=== PATIENT | male | born 1955 | race Two or more races ===

== ENCOUNTER 2019-04-11 16:23 | Inpatient (IN) | payer MEDICARE, OTHER ==
[~2019-04-11] VITALS: Ht 170.2 cm; Wt 74.5 kg
[2019-04-11] MEDS ORDERED: XANAX2 MG ORAL (16:44)
[2019-04-11] MEDS ORDERED: METHADONE HCL5 MG ORAL (16:44)
[2019-04-11] MEDS ORDERED: ZOLOFT25 MG ORAL (16:44)
[2019-04-11 16:45] VITALS: BP 104/56
--- NOTE | 2019-04-11 16:45 | NUR ---
ED Nurse Note: Pt brought in by EMS from [facility] due to spitting up of blood. Per pt he is having coughing with phlegm. Hx of throat cancer. AAO x4, follows commands, speaks in clear sentences. No respiratory distress.
[2019-04-11] MEDS ORDERED: Isovue-300 100ml vial INJ PRN (17:00)
--- NOTE | 2019-04-11 17:20 | NUR ---
ED Nurse Note: Collected blood specimen then sent.
[2019-04-11 17:34] LABS: INR 1.1 (0.9-1.1)
[2019-04-11 17:39] LABS: ANION GAP 5 mmol/L (5-15); BLOOD UREA NITROGEN 11 mg/dL (7-18); CALCIUM 8.7 MG/DL (8.5-10.1); CARBON DIOXIDE 30 MMOL/L (21-32); CHLORIDE 105 MMOL/L (98-107); CREATININE 0.7 MG/DL (0.55-1.30); POTASSIUM 3.9 MMOL/L (3.5-5.1); SODIUM 140 MMOL/L (136-145)
[2019-04-11 17:41] LABS: HEMATOCRIT 40.1 % (42.0-52.0); HEMOGLOBIN 14.2 G/DL (14.2-18.0); MEAN CORPUSCULAR VOLUME 90 FL (80-99); PLATELET COUNT 50 K/UL (150-450); RED BLOOD COUNT 4.46 M/UL (4.70-6.10); RED CELL DISTRIBUTION WIDTH 11.5 % (11.6-14.8); WHITE BLOOD COUNT 2.4 K/UL (4.8-10.8)
[2019-04-11 17:46] LABS: ALANINE AMINOTRANSFERASE 21 U/L (12-78); ALBUMIN 3.5 G/DL (3.4-5.0); ALBUMIN/GLOBULIN RATIO 1.1 (1.0-2.7); ALKALINE PHOSPHATASE 75 U/L (46-116); ASPARTATE AMINO TRANSFERASE 28 U/L (15-37); BILIRUBIN,TOTAL 0.4 MG/DL (0.2-1.0)
[2019-04-11] MEDS ORDERED: Morphine Sulfate 4mg/ml Inj (IV USE ONLY) IVP ONE (18:15)
--- NOTE | 2019-04-11 18:27 | Consultation ---
History of Present Illness General Date patient seen: Apr 11, 2019 Time patient seen: 18:18 Chief Complaint: Coughing blood Present Illness HPI Patient is here with a history of hemoptysis. he recently was seen by Cary Singh MD at [facility] and diagnosed with a left lateral pharyngeal mass. he had a CT neck and esophogram. he has been having dysphagia. He is a smoker and has cut down to two cigs/day. He denies dyspnea or dysphonia but has severe pain with swallowing and throat pain. He states he initialyl coughs up a lot of mucous in the AM and then there is specs of blood in it. Denies gil blood. No dysphonia. No stridor symptoms. Allergies: Coded Allergies: LEVOFLOXACIN (Verified Allergy, Unknown, 04/11/19) Uncoded Allergies: PENICILLIN (Allergy, Unknown, 04/11/19) Medication History Scheduled Alprazolam* (Xanax*), 2 MG ORAL TWICE A DAY, (Reported) Methadone Hcl* (Methadone*), 5 MG ORAL DAILY, (Reported) Sertraline Hcl* (Zoloft*), 25 MG ORAL DAILY, (Reported) Patient History History Provided By: Patient Healthcare decision maker Resuscitation status Advanced Directive on File Past Medical/Surgical History Past Medical/Surgical History: (1) Tobacco abuse (2) Bradycardia Social History Social History: (1) Throat cancer (2) Tobacco abuse (3) Hemoptysis Review of Systems Constitutional: Denies: no symptoms, see HPI, chills, sweats, fever, malaise, weakness, other Eye: Denies: no symptoms, see HPI, eye pain, blurred vision, tearing, double vision, nose pain, nose congestion, acuity changes, discharge, other ENT: Reports: throat pain Respiratory: Denies: no symptoms, see HPI, cough, orthopnea, shortness of breath, stridor, wheezing, THRASHER, sputum, other Cardiovascular: Denies: no symptoms, see HPI, chest pain, edema, palpitations, syncope, PND, other Gastrointestinal: Denies: no symptoms, see HPI, abdominal pain, constipation, diarrhea, nausea, vomiting, melena, hematemesis, other Genitourinary: Denies: no symptoms, see HPI, discharge, dysuria, frequency, hematuria, pain, retention, incontinence, urgency, vag bleed/dc, other Musculoskeletal: Denies: no symptoms, see HPI, back pain, gout, joint pain, joint swelling, muscle pain, muscle stiffness, other Skin: Denies: no symptoms, see HPI, rash, change in color, change in hair/nails , dryness, lesions, other Psychiatric: Denies: no symptoms, see HPI, prior hx, anxiety, depressed feelings, emotional problems, SI, HI, hallucinations, other Neurological: Denies: no symptoms, see HPI, headache, numbness, paresthesia, seizure, tingling, tremors, focal weakness, syncope, dizziness, other Endocrine: Denies: no symptoms, see HPI, excessive sweating, flushing, intolerance to temperature, increased thirst, increased urine, unexplained weight loss, other Hematologic/Lymphatic: Denies: no symptoms, see HPI, anemia, blood clots, easy bleeding, easy bruising, swollen glands, diathesis, other All Other Systems: negative except mentioned in HPI Physical Exam HEENT: normocephalic, atraumatic, mucous membranes moist, PERRL, EOMI, pharynx normal, supple, other - oral cavity dry, MMM, no masses or lesions Neck: non-tender, supple, normal inspection Physical Exam Narrative - Indication-D37.05 CPT 40712 Procedure- Scope was passed through the nares and down to the level of the pharynx. The nasal cavity and nasopharnyx was evaluated. No masses or lesions seen. The orpharynx and oral cavity was clear. On the left lateral pharyngeal was an exophytic cylindrical smooth mass was seen. It is overhaving and contacting the arytenoid. There was no e/o bleeding. There was no airway obstruction. Both vocal cords were mobile. Last 24 Hour Vital Signs Date Time Temp Pulse Resp B/P (MAP) Pulse Ox O2 Delivery O2 Flow Rate FiO2 04/11/19 16:50 50 17 Room Air 04/11/19 16:45 98.1 50 16 104/56 97 Room Air 04/11/19 16:33 98.1 50 15 98/56 (70) 91 Room Air 2.0 Laboratory Tests Test 04/11/19 17:00 White Blood Count 2.4 K/UL (4.8-10.8) L Red Blood Count 4.46 M/UL (4.70-6.10) L Hemoglobin 14.2 G/DL (14.2-18.0) Hematocrit 40.1 % (42.0-52.0) L Mean Corpuscular Volume 90 FL (80-99) Mean Corpuscular Hemoglobin 31.8 PG (27.0-31.0) H Mean Corpuscular Hemoglobin Concent 35.4 G/DL (32.0-36.0) Red Cell Distribution Width 11.5 % (11.6-14.8) L Platelet Count 50 K/UL (150-450) L Mean Platelet Volume 10.0 FL (6.5-10.1) Neutrophils (%) (Auto) % (45.0-75.0) Lymphocytes (%) (Auto) % (20.0-45.0) Monocytes (%) (Auto) % (1.0-10.0) Eosinophils (%) (Auto) % (0.0-3.0) Basophils (%) (Auto) % (0.0-2.0) Neutrophils % (Manual) Pending Lymphocytes % (Manual) Pending Platelet Estimate Pending Platelet Morphology Pending Prothrombin Time 11.6 SEC (9.30-11.50) H Prothromb Time International Ratio 1.1 (0.9-1.1) Activated Partial Thromboplast Time 33 SEC (23-33) Sodium Level 140 MMOL/L (136-145) Potassium Level 3.9 MMOL/L (3.5-5.1) Chloride Level 105 MMOL/L (98-107) Carbon Dioxide Level 30 MMOL/L (21-32) Anion Gap 5 mmol/L (5-15) Blood Urea Nitrogen 11 mg/dL (7-18) Creatinine 0.7 MG/DL (0.55-1.30) Estimat Glomerular Filtration Rate > 60 mL/min (>60) Glucose Level 101 MG/DL (74-106) Calcium Level 8.7 MG/DL (8.5-10.1) Total Bilirubin 0.4 MG/DL (0.2-1.0) Aspartate Amino Transf (AST/SGOT) 28 U/L (15-37) Alanine Aminotransferase (ALT/SGPT) 21 U/L (12-78) Alkaline Phosphatase 75 U/L (46-116) Total Protein 6.8 G/DL (6.4-8.2) Albumin 3.5 G/DL (3.4-5.0) Globulin 3.3 g/dL Albumin/Globulin Ratio 1.1 (1.0-2.7) Height (Feet): 5 Height (Inches): 7.00 Weight (Pounds): 165 Medications Current Medications Medications (Trade) Dose Ordered Sig/Osvaldo Route PRN Reason Start Time Stop Time Status Last Admin Dose Admin Iopamidol (Isovue-300 100ml) 100 ml NOW PRN INJ Radiology Procedure 04/11/19 17:00 04/13/19 16:51 Sodium Chloride 1,000 ml @ 200 mls/hr Q5H IV 04/11/19 18:00 05/11/19 17:59 04/11/19 18:15 Assessment/Plan Problem List: (1) Throat cancer ICD Codes: 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 This does not appear to be a difinitive cancer which explains why the outside ENT order workup neck imaging and esophogram. I would advise that she be contacted and asked to review the imaging as repeating a full workup wouldn't make sense with the addition that other than a biopsy I would refer to her for further management anyways. [facility] admission for hemopytis and bradycardia workup. Can follow up outpatient for ENT complaints. [facility] lortab elixir for pain control. Isa Pappas MD Apr 11, 2019 18:27
--- NOTE | 2019-04-11 18:28 | Emergency Room Report ---
History of Present Illness General Chief Complaint: Upper Respiratory Illness Source: Patient Present Illness HPI 64-year-old male presents ED for evaluation. Brought in by EMS from assisted living facility. Reportedly having hemoptysis x1 week. Patient states that he has been recently diagnosed with throat cancer by another ENT. Denies chest pain or shortness of breath. Denies fevers or chills. States he is able to swallow without difficulty. No other aggravating relieving factors. Denies any other associated symptoms Allergies: Coded Allergies: LEVOFLOXACIN (Verified Allergy, Unknown, 04/11/19) Uncoded Allergies: PENICILLIN (Allergy, Unknown, 04/11/19) Patient History Past Medical History: HTN, COPD, psych hx, other - throat ca Past Surgical History: none Pertinent Family History: none Social History: Denies: smoking, alcohol use, drug use Immunizations: UTD Reviewed Nursing Documentation: PMH: Agreed; PSxH: Agreed Nursing Documentation-PMH Hx Hypertension: Yes Hx COPD: Yes Hx Cancer: Yes - THROAT CA History Of Psychiatric Problem: Yes - DEPRESSION Review of Systems All Other Systems: negative except mentioned in HPI Physical Exam Vital Signs Date Time Temp Pulse Resp B/P (MAP) Pulse Ox O2 Delivery O2 Flow Rate FiO2 04/11/19 16:33 98.1 50 15 98/56 (70) 91 Room Air 2.0 Sp02 EP Interpretation: reviewed, normal General Appearance: no apparent distress, alert, GCS 15, non-toxic Head: normocephalic, atraumatic Eyes: bilateral eye normal inspection, bilateral eye PERRL ENT: hearing grossly normal, normal pharynx, no angioedema, normal voice Neck: full range of motion, supple/symm/no masses Respiratory: chest non-tender, lungs clear, normal breath sounds, speaking full sentences Cardiovascular #1: regular rate, rhythm, no edema Cardiovascular #2: 2+ carotid (R), 2+ carotid (L), 2+ radial (R), 2+ radial (L) , 2+ dorsalis pedis (R), 2+ dorsalis pedis (L) Gastrointestinal: normal bowel sounds, non tender, soft, non-distended, no guarding, no rebound Rectal: deferred Genitourinary: normal inspection, no CVA tenderness Musculoskeletal: back normal, gait/station normal, normal range of motion, non- tender Neurologic: alert, oriented x3, responsive, motor strength/tone normal, sensory intact, speech normal Psychiatric: judgement/insight normal, memory normal, mood/affect normal, no suicidal/homicidal ideation Reflexes: 3+ bicep (R), 3+ bicep (L), 3+ tricep (R), 3+ tricep (L), 3+ knee (R) , 3+ knee (L) Lymphatic: no adenopathy Medical Decision Making Diagnostic Impression: Primary Impression: Hemoptysis Additional Impressions: Throat cancer Bradycardia ER Course Hospital Course 64 yo M presents to ED with hemoptysis. h/o throat cancer. Differential diagnoses include: URI, bronchitis, asthma/COPD, pneumonia Clinical course Patient placed on stretcher. After initial history, physical exam reveals an elderly male in no acute distress. Bilateral TM unremarkable. No pharyngeal erythema. No tonsillar exudates. No lymphadenopathy. lungs clear. I ordered labs, IV fluids, EKG, chest x-ray. Labs reviewed-leukocytosis noted, hemoglobin/hematocrit stable, electrolytes okay EKG - sinus bradycardia no acute ischemic changes interpreted by me Chest x-ray shows no focal consolidation Patient was to receive CT neck and CT chest but declined stating that he had had this work-up done recently in outpatient setting. Inpatient team will obtain records for this imaging. Dr. Pappas (ENT) at bedside to evaluate patient. patient mentating appropriately, not hypotensive with bradycardia to the 50s. Not requiring atropine or pacer at this time patient will be admitted to Dr Dodge Diagnosis - hemoptysis, throat cancer, bradycardia admitted to telemetry in serious condition Labs Test 04/11/19 17:00 04/11/19 18:20 White Blood Count 2.4 K/UL (4.8-10.8) Red Blood Count 4.46 M/UL (4.70-6.10) Hemoglobin 14.2 G/DL (14.2-18.0) Hematocrit 40.1 % (42.0-52.0) Mean Corpuscular Volume 90 FL (80-99) Mean Corpuscular Hemoglobin 31.8 PG (27.0-31.0) Mean Corpuscular Hemoglobin Concent 35.4 G/DL (32.0-36.0) Red Cell Distribution Width 11.5 % (11.6-14.8) Platelet Count 50 K/UL (150-450) Mean Platelet Volume 10.0 FL (6.5-10.1) Neutrophils (%) (Auto) % (45.0-75.0) Lymphocytes (%) (Auto) % (20.0-45.0) Monocytes (%) (Auto) % (1.0-10.0) Eosinophils (%) (Auto) % (0.0-3.0) Basophils (%) (Auto) % (0.0-2.0) Prothrombin Time 11.6 SEC (9.30-11.50) Prothromb Time International Ratio 1.1 (0.9-1.1) Activated Partial Thromboplast Time 33 SEC (23-33) Sodium Level 140 MMOL/L (136-145) Potassium Level 3.9 MMOL/L (3.5-5.1) Chloride Level 105 MMOL/L (98-107) Carbon Dioxide Level 30 MMOL/L (21-32) Anion Gap 5 mmol/L (5-15) Blood Urea Nitrogen 11 mg/dL (7-18) Creatinine 0.7 MG/DL (0.55-1.30) Estimat Glomerular Filtration Rate > 60 mL/min (>60) Glucose Level 101 MG/DL (74-106) Calcium Level 8.7 MG/DL (8.5-10.1) Total Bilirubin 0.4 MG/DL (0.2-1.0) Aspartate Amino Transf (AST/SGOT) 28 U/L (15-37) Alanine Aminotransferase (ALT/SGPT) 21 U/L (12-78) Alkaline Phosphatase 75 U/L (46-116) Total Protein 6.8 G/DL (6.4-8.2) Albumin 3.5 G/DL (3.4-5.0) Globulin 3.3 g/dL Albumin/Globulin Ratio 1.1 (1.0-2.7) EKG Diagnostic Results Rate: bradycardiac Rhythm: NSR ST Segments: no acute changes ASA given to the pt in ED: No Rhythm Strip Diag. Results EP Interpretation: yes Rhythm: NSR, no PVC's, no ectopy Chest X-Ray Diagnostic Results Chest X-Ray Diagnostic Results : Chest X-Ray Ordered: Yes # of Views/Limited/Complete: 1 View Indication: Other EP Interpretation: Yes Interpretation: no consolidation, no effusion, no pneumothorax, no acute cardiopulmonary disease Impression: No acute disease Electronically Signed by: Electronically signed by Rg Ash MD Last Vital Signs Date Time Temp Pulse Resp B/P (MAP) Pulse Ox O2 Delivery O2 Flow Rate FiO2 04/11/19 16:50 50 17 Room Air 04/11/19 16:45 98.1 104/56 97 04/11/19 16:33 2.0 Status: improved Disposition: ADMITTED INPATIENT Condition: Serious Referrals: Ivan Dodge MD (PCP) Rg Ash MD Apr 11, 2019 18:28
[2019-04-11 18:31] LABS: APPEARANCE,URINE CLEAR; BILIRUBIN, URINE NEGATIVE (NEGATIVE); COLOR,URINE PALE YELLOW; GLUCOSE, URINE (UA) NEGATIVE (NEGATIVE); KETONES,URINE NEGATIVE (NEGATIVE); LEUKOCYTE ESTERASE ,URINE NEGATIVE (NEGATIVE); NITRITE,URINE NEGATIVE (NEGATIVE); PH,URINE 7 (4.5-8.0); PROTEIN,URINE NEGATIVE (NEGATIVE); UROBILINOGEN,URINE NORMAL MG/DL (0.0-1.0)
--- NOTE | 2019-04-11 18:37 | NUR ---
ED Nurse Note: Dr Pappas at the bed side.
[2019-04-11] MEDS ORDERED: Oxymetazoline 0.05% Na Spray 30ml NASAL ONE (18:45)
--- NOTE | 2019-04-11 18:45 | NUR ---
ED Nurse Note: Dr Sergio Pappas at the bed side for laryngoscopy. Dr Pappas stated that no consent needed to sign by patient.
--- NOTE | 2019-04-11 19:12 | NUR ---
ED Nurse Note: Pt's medication surrendered to pharmacy. Witnessed with Meng Katz RN.
--- NOTE | 2019-04-11 19:14 | NUR ---
HAND-OFF: Report given to Meng RANGEL.
--- NOTE | 2019-04-11 19:30 | NUR ---
ED Nurse Note: Patient stated that he wanted to keep his belongings with him and denied the use of hospital safe
--- NOTE | 2019-04-11 19:30 | NUR ---
Priyanka wiseman in EDM - 04/11/19 at 2017 by TAMY ED Nurse Note: Patient stated that he wanted to keep his belongings and denies a
--- NOTE | 2019-04-11 19:51 | Pulmonology Progress Note ---
Assessment/Plan Assessment/Plan Pulmonary Consultation: HPI 64-year-old male admitted c/o hemoptysis x1 week. Patient states that he has been recently diagnosed with throat cancer by another ENT. Denies chest pain or shortness of breath. Denies fevers or chills. States he is able to swallow without difficulty. No other aggravating relieving factors. Denies any other associated symptoms. Seen by ENT noted to have left mass above the vocal cords Allergies: Coded Allergies: LEVOFLOXACIN PENICILLIN Past Medical History: HTN, COPD, psych hx, throat ca Social History: Denies: current smoking, alcohol use, drug use I All Other Systems: negative except mentioned in HPI Physical Exam Vital Signs Noted Date Time Temp Pulse Resp B/P (MAP) Pulse Ox O2 Delivery O2 Flow Rate FiO2 04/11/19 16:33 98.1 50 15 98/56 (70) 91 Room Air 2.0 General Appearance: no apparent distress, alert, GCS 15, non-toxic Head: normocephalic, atraumatic Eyes: bilateral eye normal inspection, bilateral eye PERRL ENT: hearing grossly normal, normal pharynx, no angioedema, normal voice Neck: full range of motion, supple/symm/no masses, no lN Respiratory: chest non-tender, lungs clear, normal breath sounds, speaking full sentences Cardiovascular: regular rate, rhythm, normal HS1, HS2, no edema Gastrointestinal: normal bowel sounds, non tender, soft, non-distended, no guarding, no rebound Rectal: deferred Genitourinary: normal inspection, no CVA tenderness Musculoskeletal: back normal, gait/station normal, normal range of motion, non- tender Neurologic: alert, oriented x3, responsive, motor strength/tone normal Impression: Hemoptysis COPD Clear CXR Thrombocytopenia Throat cancer Hypertension Bradycardia Depression Plan - O2 PRN - ENT following - CT Chest - CTA - LE dupplex - PRN 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 Labs Test 04/11/19 17:00 04/11/19 18:20 White Blood Count 2.4 K/UL (4.8-10.8) Red Blood Count 4.46 M/UL (4.70-6.10) Hemoglobin 14.2 G/DL (14.2-18.0) Hematocrit 40.1 % (42.0-52.0) Mean Corpuscular Volume 90 FL (80-99) Mean Corpuscular Hemoglobin 31.8 PG (27.0-31.0) Mean Corpuscular Hemoglobin Concent 35.4 G/DL (32.0-36.0) Red Cell Distribution Width 11.5 % (11.6-14.8) Platelet Count 50 K/UL (150-450) Mean Platelet Volume 10.0 FL (6.5-10.1) Neutrophils (%) (Auto) % (45.0-75.0) Lymphocytes (%) (Auto) % (20.0-45.0) Monocytes (%) (Auto) % (1.0-10.0) Eosinophils (%) (Auto) % (0.0-3.0) Basophils (%) (Auto) % (0.0-2.0) Prothrombin Time 11.6 SEC (9.30-11.50) Prothromb Time International Ratio 1.1 (0.9-1.1) Activated Partial Thromboplast Time 33 SEC (23-33) Sodium Level 140 MMOL/L (136-145) Potassium Level 3.9 MMOL/L (3.5-5.1) Chloride Level 105 MMOL/L (98-107) Carbon Dioxide Level 30 MMOL/L (21-32) Anion Gap 5 mmol/L (5-15) Blood Urea Nitrogen 11 mg/dL (7-18) Creatinine 0.7 MG/DL (0.55-1.30) Estimat Glomerular Filtration Rate > 60 mL/min (>60) Glucose Level 101 MG/DL (74-106) Calcium Level 8.7 MG/DL (8.5-10.1) Total Bilirubin 0.4 MG/DL (0.2-1.0) Aspartate Amino Transf (AST/SGOT) 28 U/L (15-37) Alanine Aminotransferase (ALT/SGPT) 21 U/L (12-78) Alkaline Phosphatase 75 U/L (46-116) Total Protein 6.8 G/DL (6.4-8.2) Albumin 3.5 G/DL (3.4-5.0) Globulin 3.3 g/dL Albumin/Globulin Ratio 1.1 (1.0-2.7) EKG: Rate: bradycardiac Rhythm: NSR ST Segments: no acute changes Chest X-Ray: No acute disease Subjective ROS Limited/Unobtainable: No Respiratory: Reports: hemoptysis Allergies: Coded Allergies: LEVOFLOXACIN (Verified Allergy, Unknown, 04/11/19) Uncoded Allergies: PENICILLIN (Allergy, Unknown, 04/11/19) Objective Last 24 Hour Vital Signs Date Time Temp Pulse Resp B/P (MAP) Pulse Ox O2 Delivery O2 Flow Rate FiO2 04/11/19 18:45 98.1 04/11/19 16:50 50 17 Room Air 04/11/19 16:45 98.1 50 16 104/56 97 Room Air 04/11/19 16:33 98.1 50 15 98/56 (70) 91 Room Air 2.0 Laboratory Tests 04/11/19 17:00: White Blood Count 2.4L, Red Blood Count 4.46L, Hemoglobin 14.2, Hematocrit 40.1L , Mean Corpuscular Volume 90, Mean Corpuscular Hemoglobin 31.8H, Mean Corpuscular Hemoglobin Concent 35.4, Red Cell Distribution Width 11.5L, Platelet Count 50L, Mean Platelet Volume 10.0, Neutrophils (%) (Auto) , Lymphocytes (%) (Auto) , Monocytes (%) (Auto) , Eosinophils (%) (Auto) , Basophils (%) (Auto) , Differential Total Cells Counted 100, Neutrophils % ( Manual) 30L, Lymphocytes % (Manual) 53H, Monocytes % (Manual) 7, Eosinophils % ( Manual) 9H, Basophils % (Manual) 0, Band Neutrophils 1, Platelet Estimate DecreasedL, Platelet Morphology Normal, Red Blood Cell Morphology Normal, Prothrombin Time 11.6H, Prothromb Time International Ratio 1.1, Activated Partial Thromboplast Time 33, Sodium Level 140, Potassium Level 3.9, Chloride Level 105, Carbon Dioxide Level 30, Anion Gap 5, Blood Urea Nitrogen 11, Creatinine 0.7, Estimat Glomerular Filtration Rate > 60, Glucose Level 101, Calcium Level 8.7, Total Bilirubin 0.4, Aspartate Amino Transf (AST/SGOT) 28, Alanine Aminotransferase (ALT/SGPT) 21, Alkaline Phosphatase 75, Total Protein 6.8, Albumin 3.5, Globulin 3.3, Albumin/Globulin Ratio 1.1 04/11/19 18:20: Urine Color Pale yellow, Urine Appearance Clear, Urine pH 7, Urine Specific [place] 1.010, Urine Protein Negative, Urine Glucose (UA) Negative, Urine Ketones Negative, Urine Blood Negative, Urine Nitrite Negative, Urine Bilirubin Negative, Urine Urobilinogen Normal, Urine Leukocyte Esterase Negative Current Medications Medications (Trade) Dose Ordered Sig/Osvaldo Route PRN Reason Start Time Stop Time Status Last Admin Dose Admin Iopamidol (Isovue-300 100ml) 100 ml NOW PRN INJ Radiology Procedure 04/11/19 17:00 04/13/19 16:51 Sodium Chloride 1,000 ml @ 200 mls/hr Q5H IV 04/11/19 18:00 05/11/19 17:59 04/11/19 18:15 Hussain Edwards MD Apr 11, 2019 19:51
--- NOTE | 2019-04-11 20:00 | NUR ---
TRANSFER TO FLOOR: Patient transferred to Telemetry as ordered, per . Report given to JUAN CARLOS Bettencourt
--- NOTE | 2019-04-11 20:10 | NUR ---
NURSE NOTES: Pt received from Meng RANGEL alert and oriented x4, but hard of hearing bilaterally. No s/s of distress noted. IV site asymptomatic and patent on R ac 20g, saline lock. No wounds noted upon admission. Belongings all with patient upon admission - including watch and $240 in hemphill which the pt refused to place in safe. RN educated pt on risks of leaving money at bedside but pt verbalized understanding and stated that he wanted to keep it with him at bedside for safe-keeping. Pt able to ambulate steadily, has assistive device (cane) at bedside. Pt provided [facility] of Methadone [facility] in [address] [place] [address] ([phone]). Addendum: 04/12/19 at 0055 by Sg Villalpando RN [employer] dropped off pt's home medications in [facility] pharmacy. Pharmacy tag placed in chart and in EMR (#[id number])
--- NOTE | 2019-04-11 20:29 | NUR ---
NURSE NOTES: Left message for Dr. Dodge for admission orders. Currently awaiting call back.
[2019-04-11 20:33] VITALS: BP 125/71
--- NOTE | 2019-04-11 20:40 | NUR ---
NURSE NOTES: Endorsed pt's home meds to Dr. Dodge: Xanax 2 mg PO BID, MEthadone 5 mg PO daily, Zoloft 25 mg PO daily, Trazodone [address] Dodge, pls continue the medications. - Full code - CBC and CMP in AM - SCD for DVT - Reg diet
[2019-04-11] MEDS ORDERED: TRAZODONE HCL50 MG ORAL (20:51)
[2019-04-11] MEDS ORDERED: TraZODone 50mg tab ORAL SCH (21:00)
--- NOTE | 2019-04-11 21:06 | NUR ---
NURSE NOTES: Endorsed to Starr from pharmacy about pt's methadone clinic information. RN will obtain HIPAA form for pt to sign and will fax to pharmacy for pharmacy to follow up in AM.
--- NOTE | 2019-04-11 21:30 | NUR ---
NURSE NOTES: Left message with Penny Canales [facility] to obtain patient's files and information ([phone]). Will endorse to AM nurse to follow up.
--- NOTE | 2019-04-11 22:41 | NUR ---
NURSE NOTES: Per Dr. Edwards: - Venous Duplex in AM to r/o DVT and then when negative - place pt on SCDs - CT Angio of chest to r/o Pulmonary Embolism - PRN albuterol 2.5 mg q4h for SOB - Maintain O2 sat at 90-96% - Zofran 4 mg q8h PRN for n/v - Tylenol 650 mg q6h PRN for mild pain and temp over 100.5 - daily CBC, daily BMP - INR in AM
[2019-04-11] MEDS ORDERED: Isovue-370 150ml vial INJ PRN (22:45)
[2019-04-11] MEDS ORDERED: Albuterol ud Inhalation HHN PRN (22:45)
[2019-04-12] VITALS: BP 120/65
--- NOTE | 2019-04-12 03:10 | NUR ---
NURSE NOTES: HIPAA form signed by patient for Methadone confirmation with clinic. Faxed to [facility] pharmacy.
[2019-04-12 04:00] VITALS: BP 94/48
[2019-04-12 07:28] LABS: HEMATOCRIT 41.6 % (42.0-52.0); HEMOGLOBIN 14.5 G/DL (14.2-18.0); MEAN CORPUSCULAR VOLUME 93 FL (80-99); PLATELET COUNT 47 K/UL (150-450); RED CELL DISTRIBUTION WIDTH 11.8 % (11.6-14.8)
[2019-04-12 07:30] LABS: WHITE BLOOD COUNT 2.1 K/UL (4.8-10.8)
--- NOTE | 2019-04-12 07:30 | NUR ---
NURSE NOTES: Pt initially refused Ct angio of chest stating "I already had it done at another place two weeks ago. I don't see the need of having it done again." RN endorsed to Dr. Edwards and educated pt of the necessity of the test "to assess if there are any changes from prior exam as well as to assess current pulmonary condition." Pt agreed to have CT of chest after discussion. Per Dr. Edwards, pls collect the results from the other place so we can compare. Pt provided contact number and facility "[facility]" ([phone]). HIPAA form filled out and signed by patient. RN tried to call twice to [facility] but was unable to obtain response, RN endorsed to AM nurse to follow up. Addendum: 04/12/19 at 0750 by Sg Villalpando RN HIPAA form placed in chart.
[2019-04-12 07:39] LABS: ALANINE AMINOTRANSFERASE 24 U/L (12-78); ALBUMIN 3.2 G/DL (3.4-5.0); ALBUMIN/GLOBULIN RATIO 1.1 (1.0-2.7); ALKALINE PHOSPHATASE 69 U/L (46-116); ANION GAP 5 mmol/L (5-15); ASPARTATE AMINO TRANSFERASE 27 U/L (15-37); BILIRUBIN,TOTAL 0.5 MG/DL (0.2-1.0); BLOOD UREA NITROGEN 9 mg/dL (7-18); CALCIUM 8.4 MG/DL (8.5-10.1); CARBON DIOXIDE 29 MMOL/L (21-32); CHLORIDE 107 MMOL/L (98-107); CREATININE 0.6 MG/DL (0.55-1.30); POTASSIUM 3.6 MMOL/L (3.5-5.1); SODIUM 141 MMOL/L (136-145)
--- NOTE | 2019-04-12 07:45 | NUR ---
HAND-OFF: Report given to JUAN CARLOS Hernández. No acute s/s of distress noted.
--- NOTE | 2019-04-12 07:45 | NUR ---
NURSE NOTES: Received report from Sg RANGEL. AOX4 and able to make needs known. Pt sitting in bed and awake. IV site in RAA 20G SL asymptomatic and patent. Bed in its lowest position an locked. Bed side rails upx2 for safety. Call light within easy reach. On room air and no signs of distress or SOB noted. Will continue to plan of care.
[2019-04-12 07:47] LABS: INR 1.1 (0.9-1.1)
[2019-04-12 08:00] VITALS: BP 92/47
--- NOTE | 2019-04-12 08:45 | NUR ---
NURSE NOTES: The pt transferred to radiology dept for CT scan via bed with transporter
--- NOTE | 2019-04-12 08:58 | NUR ---
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
[2019-04-12] MEDS ORDERED: Sertraline 50mg tab ORAL SCH (09:00)
[2019-04-12] MEDS ORDERED: ALPRAZolam 0.5mg tab ORAL SCH (09:00)
--- NOTE | 2019-04-12 09:11 | Consultation ---
History of Present Illness General Date patient seen: Apr 12, 2019 Time patient seen: 09:07 Chief Complaint: Upper Respiratory Illness Present Illness HPI Pt brought in by EMS from [facility] due to spitting up of blood. Per pt he is having coughing with phlegm. Hx of throat cancer. Cardiology consulted for bradycardia, no syncope, no chest pain, no hx of UT, smoking history Allergies: Coded Allergies: LEVOFLOXACIN (Verified Allergy, Unknown, 04/11/19) Uncoded Allergies: PENICILLIN (Allergy, Unknown, 04/11/19) Medication History Scheduled Alprazolam* (Xanax*), 2 MG ORAL TWICE A DAY, (Reported) Methadone Hcl* (Methadone*), 5 MG ORAL DAILY, (Reported) Sertraline Hcl* (Zoloft*), 25 MG ORAL DAILY, (Reported) Trazodone Hcl* (Desyrel*), 50 MG ORAL BEDTIME, (Reported) Patient History Healthcare decision maker Resuscitation status Full Code Advanced Directive on File Review of Systems Constitutional: Reports: no symptoms Eye: Reports: no symptoms ENT: Reports: no symptoms Respiratory: Reports: no symptoms Cardiovascular: Reports: no symptoms Gastrointestinal: Reports: nausea, vomiting Genitourinary: Reports: no symptoms Musculoskeletal: Reports: no symptoms Skin: Reports: no symptoms Psychiatric: Reports: no symptoms Neurological: Reports: no symptoms Endocrine: Reports: no symptoms Hematologic/Lymphatic: Reports: no symptoms Physical Exam General Appearance: no apparent distress, lethargic Lines, tubes and drains: peripheral HEENT: normocephalic, atraumatic, anicteric, mucous membranes moist, PERRL Neck: non-tender, normal alignment, supple, normal inspection Respiratory/Chest: chest wall non-tender, lungs clear, normal breath sounds, no respiratory distress Cardiovascular/Chest: normal peripheral pulses, normal rate Abdomen: normal bowel sounds, non tender, soft, no organomegaly, no mass Extremities: normal range of motion, non-tender, normal inspection, no calf tenderness, normal capillary refill, non-pitting Skin Exam: normal pigmentation, warm/dry, cyanotic 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 II-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 grossly normal, no motor/sensory deficits Last 24 Hour Vital Signs Date Time Temp Pulse Resp B/P (MAP) Pulse Ox O2 Delivery O2 Flow Rate FiO2 04/12/19 08:00 98.5 46 20 92/47 (62) 96 8/15/19 04:00 97.4 43 20 94/48 (63) 94 04/12/19 04:00 43 04/12/19 00:00 98.1 50 20 120/65 (83) 96 04/12/19 00:00 35 04/11/19 20:33 97.9 65 20 125/71 (89) 94 04/11/19 20:33 Room Air 04/11/19 20:28 45 04/11/19 20:00 98.1 53 17 126/65 99 Room Air 04/11/19 18:45 98.1 04/11/19 16:50 50 17 Room Air 04/11/19 16:45 98.1 50 16 104/56 97 Room Air 04/11/19 16:33 98.1 50 15 98/56 (70) 91 Room Air 2.0 Intake and Output 04/11/19 04/12/19 19:00 07:00 # Voids 1 Laboratory Tests Test 04/11/19 17:00 04/11/19 18:20 04/12/19 05:15 White Blood Count 2.4 K/UL (4.8-10.8) L 2.1 K/UL (4.8-10.8) *L Red Blood Count 4.46 M/UL (4.70-6.10) L 4.50 M/UL (4.70-6.10) L Hemoglobin 14.2 G/DL (14.2-18.0) 14.5 G/DL (14.2-18.0) Hematocrit 40.1 % (42.0-52.0) L 41.6 % (42.0-52.0) L Mean Corpuscular Volume 90 FL (80-99) 93 FL (80-99) Mean Corpuscular Hemoglobin 31.8 PG (27.0-31.0) H 32.3 PG (27.0-31.0) H Mean Corpuscular Hemoglobin Concent 35.4 G/DL (32.0-36.0) 34.9 G/DL (32.0-36.0) Red Cell Distribution Width 11.5 % (11.6-14.8) L 11.8 % (11.6-14.8) Platelet Count 50 K/UL (150-450) L 47 K/UL (150-450) L Mean Platelet Volume 10.0 FL (6.5-10.1) 8.7 FL (6.5-10.1) Neutrophils (%) (Auto) % (45.0-75.0) % (45.0-75.0) Lymphocytes (%) (Auto) % (20.0-45.0) % (20.0-45.0) Monocytes (%) (Auto) % (1.0-10.0) % (1.0-10.0) Eosinophils (%) (Auto) % (0.0-3.0) % (0.0-3.0) Basophils (%) (Auto) % (0.0-2.0) % (0.0-2.0) Differential Total Cells Counted 100 100 Neutrophils % (Manual) 30 % (45-75) L 49 % (45-75) Lymphocytes % (Manual) 53 % (20-45) H 34 % (20-45) Monocytes % (Manual) 7 % (1-10) 10 % (1-10) Eosinophils % (Manual) 9 % (0-3) H 6 % (0-3) H Basophils % (Manual) 0 % (0-2) 1 % (0-2) Band Neutrophils 1 % (0-8) 0 % (0-8) Platelet Estimate Decreased L Decreased L Platelet Morphology Normal Normal Red Blood Cell Morphology Normal Normal Prothrombin Time 11.6 SEC (9.30-11.50) H 11.8 SEC (9.30-11.50) H Prothromb Time International Ratio 1.1 (0.9-1.1) 1.1 (0.9-1.1) Activated Partial Thromboplast Time 33 SEC (23-33) Sodium Level 140 MMOL/L (136-145) 141 MMOL/L (136-145) Potassium Level 3.9 MMOL/L (3.5-5.1) 3.6 MMOL/L (3.5-5.1) Chloride Level 105 MMOL/L (98-107) 107 MMOL/L (98-107) Carbon Dioxide Level 30 MMOL/L (21-32) 29 MMOL/L (21-32) Anion Gap 5 mmol/L (5-15) 5 mmol/L (5-15) Blood Urea Nitrogen 11 mg/dL (7-18) 9 mg/dL (7-18) Creatinine 0.7 MG/DL (0.55-1.30) 0.6 MG/DL (0.55-1.30) Estimat Glomerular Filtration Rate > 60 mL/min (>60) > 60 mL/min (>60) Glucose Level 101 MG/DL (74-106) 86 MG/DL (74-106) Calcium Level 8.7 MG/DL (8.5-10.1) 8.4 MG/DL (8.5-10.1) L Total Bilirubin 0.4 MG/DL (0.2-1.0) 0.5 MG/DL (0.2-1.0) Aspartate Amino Transf (AST/SGOT) 28 U/L (15-37) 27 U/L (15-37) Alanine Aminotransferase (ALT/SGPT) 21 U/L (12-78) 24 U/L (12-78) Alkaline Phosphatase 75 U/L (46-116) 69 U/L (46-116) Total Protein 6.8 G/DL (6.4-8.2) 6.2 G/DL (6.4-8.2) L Albumin 3.5 G/DL (3.4-5.0) 3.2 G/DL (3.4-5.0) L Globulin 3.3 g/dL 3.0 g/dL Albumin/Globulin Ratio 1.1 (1.0-2.7) 1.1 (1.0-2.7) Urine Color Pale yellow Urine Appearance Clear Urine pH 7 (4.5-8.0) Urine Specific [place] 1.010 (1.005-1.035) Urine Protein Negative (NEGATIVE) Urine Glucose (UA) Negative (NEGATIVE) Urine Ketones Negative (NEGATIVE) Urine Blood Negative (NEGATIVE) Urine Nitrite Negative (NEGATIVE) Urine Bilirubin Negative (NEGATIVE) Urine Urobilinogen Normal MG/DL (0.0-1.0) Urine Leukocyte Esterase Negative (NEGATIVE) Microbiology Date/Time Source Procedure Growth Status 04/11/19 19:00 Rectum Received Height (Feet): 5 Height (Inches): 7.00 Weight (Pounds): 164 Medications Current Medications Medications (Trade) Dose Ordered Sig/Osvaldo Route PRN Reason Start Time Stop Time Status Last Admin Dose Admin Acetaminophen (Tylenol) 650 mg Q4H PRN ORAL Mild Pain/Temp > 100.5 04/11/19 22:45 05/11/19 22:44 Albuterol Sulfate (Proventil) 2.5 mg Q4HRT PRN HHN Shortness of Breath 04/11/19 22:45 04/16/19 22:44 Alprazolam (Xanax) 2 mg BID ORAL 04/12/19 09:00 04/19/19 08:59 Iopamidol (Isovue-370 150ml) 150 ml NOW PRN INJ Radiology Procedure 04/11/19 22:45 04/13/19 22:43 Methadone HCl (Methadone HCl) 5 mg DAILY ORAL 04/12/19 09:00 04/19/19 08:59 UNV Ondansetron HCl (Zofran) 4 mg Q8H PRN IVP Nausea & Vomiting 04/11/19 22:45 05/11/19 22:44 Sertraline HCl (Zoloft) 25 mg DAILY ORAL 04/12/19 09:00 05/12/19 08:59 Trazodone HCl (Desyrel) 50 mg BEDTIME ORAL 04/11/19 21:00 05/11/19 20:59 04/11/19 21:47 Assessment/Plan Status: stable Assessment/Plan: Assessment: Throat cancer Bradycardia nausea vomiting Hemoptysis Plan -Monitor telemetry -No indication for pacemaker -Outpatient treadmill to evaluate conduction and smoking history -CTA/LE dopplers per pulmonary -Hold aspirin given GI bleed Hussain Priest MD Apr 12, 2019 09:11
--- NOTE | 2019-04-12 09:17 | NUR ---
CTA CHEST COMPLETED
--- NOTE | 2019-04-12 09:35 | NUR ---
NURSE NOTES: The patient returned back from the radiology dept after CT angio of chest done. And when the nurse got into the patient's room, the Pt claimed that he is goint to leave the hospital now. monitor and storage bin tender removed by the patient and left on the bed and the patient was packing his package. He stated that he heard the possible treatment of chemo therapy from the dr. Hathaway and it made him nervous. He also said he is not goint to get any Chemo therapy and he will leave the hospital now. Tried to make him come down and explained him that the chemo therapy would be one of the options of treatment but we will not start any treatment without the patient's agreement. But the patient's still upset and did not listen to the nurse. The charge nurse and two people from the security dept called into the room for him. The patient refused to sign for AMA discharge after all risks and benefits of AMA explained. Dr. Dodge paged and made MD aware. The patient left with nurse and the security's assist with steady gait and all home meds(trazodone and zoloft) returned back to the patient. Noted he left his cane in the room and no call back when the nurse called the patient for the cane. And no family member is available for report.
--- NOTE | 2019-04-12 11:40 | NUR ---
*-* INSURANCE *-* ALL CLINICALS AND REVIEW FAXED TO [facility] [phone] TRACKING#[id number] [employer]ILITY WORK[employer] [place] [place]: SHADI #[phone] FAX#[phone] REVIEWS/CLINICALS
--- NOTE | 2019-04-12 12:11 | Diagnostic Imaging Report ---
ndication: Cough Technique: IV administration nonionic contrast. Spiral acquisitions obtained from the lung bases to the lung apices. Multiplanar and 3-D reconstructions were generated. Total dose length product 772.22 mGycm. CTDIvol(s) 19.02 mGy. Dose reduction achieved using automated exposure control Comparison: none Findings: There is good quality opacification of the pulmonary arteries. No intraluminal filling defects or other findings to suggest acute pulmonary embolus are demonstrated. No definite pulmonary arterial dilatation. No evidence of thoracic aortic aneurysm or dissection. No right ventricular dilatation. The proximal great neck vessels are patent, nonstenotic, demonstrate normal branching anatomy. A calcified granuloma is seen within the right upper lobe. There is an ill-defined area of soft tissue attenuation measuring 14 x 7 mm in the right upper lobe. This is best demonstrated on image 29 of series 8. There is evidence of some scarring peripheral to this. Subpleural 3 mm nodule is demonstrated in the inferior right upper lobe, image 38 of series 8 there is a 5 mm subpleural nodule in the right middle lobe, image 52 series 8, and another subpleural nodule in right middle lobe image 59 of series 8. Atelectasis or scarring is seen in the inferior right lower lobe. Posterior dependent atelectatic changes are also seen in the left lower lobe. The heart size is normal. No pericardial effusion. No mediastinal or hilar mass or adenopathy. The esophagus is unremarkable. No axillary or chest wall mass or adenopathy. The bones demonstrates degenerative spondylosis changes. There are also degenerative changes of the right shoulder There is also thoracic scoliotic deformity, mild. The included upper abdominal anatomy is unremarkable for the presence of large perigastric varices. There is trace ascites fluid present. No definite hepatic surface nodularity demonstrated. The gallbladder is nondistended, but there is pericholecystic edema. The spleen is enlarged, incompletely included but measuring at least 14.6 cm long axis dimension Impression: Negative for evidence of acute pulmonary embolus or other acute thoracic pathology Evidence of old granulomatous disease 14 x 7 mm soft tissue opacity in the right upper lobe. While quite possibly an area of scarring given the above described calcified granuloma mass lesion is not excluded. Short interval follow-up CT in 3-6 months is recommended. Other smaller right lung soft tissue nodules are also demonstrated as detailed above and should also be followed, particularly if there is significant smoking history Evidence of portal hypertension, with perigastric varices, splenomegaly and trace ascites. No definite surface nodularity to suggest cirrhosis, however. Pericholecystic edema, probably related to the liver disease Other findings as noted, including degenerative spondylosis, thoracic scoliotic deformity, degenerative changes of the right shoulder Findings discussed by phone with Dr. Edwards at the time of interpretation The CT scanner at [facility] is accredited by the [employer] and the scans are performed using protocols designed to limit radiation exposure to as low as reasonably achievable to attain images of sufficient resolution adequate for diagnostic evaluation.
--- NOTE | 2019-04-12 12:39 | Diagnostic Imaging Report ---
Indication: Shortness of breath Technique: One view of the chest Comparison: none Findings: Small calcified granulomata are seen within the right lung. No acute infiltrates, effusions, congestion. The heart size is normal. Impression: No acute process Evidence of old granulomatous disease
--- NOTE | 2019-04-12 16:28 | CDS Physician Query ---
Clarification is required for compliance, coding accuracy, and to reflect severity of illness for this patient Dear Dr. Pagan Date: 04/12/19 __ CDS Name: Carlos Please respond to the following question: Is there a causal relationship between the _Hemoptysis____ and _Throat cancer___ _ ? PHYSICIAN RESPONSE: [X] YES [] NO Present on Admission: [X] Yes [] No [] Clinically Undetermined Physician signature Date Please also document in your Progress Notes and/or Discharge Summary and indicate if the condition was present on admission. KHADRAD
--- NOTE | 2019-04-13 04:45 | History and Physical Report ---
DATE OF ADMISSION: 04/11/2019 HISTORY OF PRESENT ILLNESS: The patient was admitted for bradycardia as well as for hemoptysis, possible tumor of the head and neck. The patient does have some hemoptysis. Denies shortness of breath. Denies chest pain. Denies cough. Denies fever or chills. PAST MEDICAL HISTORY: COPD, , head and neck tumor, anxiety, chronic pain syndrome, bradycardia. PAST SURGICAL HISTORY: Denies. SOCIAL HISTORY: History of smoking and history of drug use. REVIEW OF SYSTEMS: HEENT: Denies headaches. RESPIRATORY: Denies shortness of breath. Denies cough. CARDIOVASCULAR: Denies chest pain. Does have hemoptysis. GASTROINTESTINAL: Denies nausea, vomiting, diarrhea. EXTREMITIES: Does have chronic pain syndrome. PHYSICAL EXAMINATION: VITAL SIGNS: Temperature 97.2, blood pressure 132/70, respiratory rate 17, heart rate 45. HEENT: PERRLA. NECK: Supple. No lymphadenopathy. CHEST: Clear to auscultation. CARDIOVASCULAR: . GASTROINTESTINAL: Soft, nontender, nondistended. No organomegaly. EXTREMITIES: No edema. Moves all four extremities. NEUROLOGIC: Sensory intact to light touch. Reflexes on both sides. ASSESSMENT AND PLAN: Bradycardia, has been consulted for possible mass in the neck. Dr. Ridley, Dr. Bermudez, as well as Dr. Pappas have been consulted as well as Dr. Hathaway for the pancytopenia, and Dr. Bermudez, Dr. Ridley and Dr. Edwards for the . Ivan Dodge M.D. DR: Lois JOB#: [id number] CC:
--- NOTE | 2019-04-13 12:19 | Discharge Summary ---
Discharge Summary Discharge Summary _ DATE OF ADMISSION: 04/11/2019 DATE OF DISCHARGE: 04/12/2019 Patient left AGAINST MEDICAL ADVICE REASON FOR ADMISSION: 64 years old male was brought by EMS from assisted living due to hemoptysis for 1 week. Per patient , he was recently diagnosed with throat cancer. He was recently seen by Cary Singh MD at [facility] and diagnosed with left lateral pharyngeal mass. He had a CT neck and esophagram. He reported dysphagia. He admitted to smoking, but recently cut down to two cigarettes a day. He denied dyspnea or dysphonia , but reported severe pain with swallowing along with throat pain. He stated that initially he coughed up a lot of mucous in the morning with specs of blood in it. He denied gil blood. No dysphonia. No stridor symptoms. He denied chest pain or shortness of breath. He denied fever and chills. Upon evaluation vital signs revealed bradycardia with heart rate in 50th , blood pressure 98/56 , pulse oximetry was 91% on room air. Laboratory work-up revealed WBC 2.4, stable hemoglobin and hematocrit. Stable electrolytes and renal parameters. Stable LFT. EKG revealed sinus bradycardia, no acute ischemic changes . Chest x-ray revealed no acute cardiopulmonary pathology. Patient admitted for further management to telemetry floor CONSULTANTS: yardage control clerk Dr. Priest pulmonary Dr. Grace Ramos HOSPITAL COURSE: Patient admitted to telemetry floor. Supplemental oxygen titrated to keep pulse oximetry above 92%. Pulmonary toilet via handheld nebulizing therapy with bronchodilator provided. Solar Sales Consultant followed. CTA was negative for evidence of acute pulmonary emboli or other acute thoracic pathology. Evidence of old granulomatous disease noted. 14 x 7 mm soft tissue opacity in the right upper lobe. Mass lesion was not excluded. Short interval follow-up with a CT in 3 to 6 months was recommended. Evidence of portal hypertension with perigastric varices , splenomegaly and trace ascites. No definite surface nodularity to suggest cirrhosis, however. Senior Php Developer seen and evaluated patient. Patient was monitored on telemetry for bradycardia. Telemetry revealed sinus bradycardia with first-degree AV block. Per yardage control clerk, no indication for pacemaker. Senior Php Developer recommended outpatient treadmill to evaluate conduction . Aspirin was held due to thrombocytopenia . Is able Platelet count from 50 down to 47. ENT specialist seen and evaluated patient. Patient undergone laryngoscopy with evaluation of nasal cavity and nasopharynx. No masses or lesions were seen. Oropharynx and oral cavity were clear. On the left lateral pharyngeal noted exophytic cylindrical smooth mass . No evidence of bleeding. No airway obstruction. Both vocal cords were mobile. Per ENT specialist, patient had left lateral pharyngeal mass, possibly not malignant in nature. Findings were discussed with the patient. It did not appear to be a definite cancer, which explained outside ENT order for work-up, including neck imaging and esophagram. Patient was advised to contact his outpatient ENT to review imaging and repeat full work-up and biopsy as needed. Pain management was managed with Lortab elixir . Hemoglobin and hematocrit were closely monitored with goal to keep hemoglobin above 7. Hemoglobin and hematocrit remained at the baseline. Prior to discharge hemoglobin 14.5, hematocrit 41.6. Patient decided to leave AGAINST MEDICAL ADVICE. The risks and consequences of signing AGAINST MEDICAL ADVICE were discussed with patient in detail. Patient verbalized understanding, nevertheless signed AMA form and left. FINAL DIAGNOSES: Left lateral pharyngeal mass Possible throat cancer Hemoptysis COPD Hypertension Bradycardia Depression Thrombocytopenia I have been assigned to dictate discharge summary for this account. I was not involved in the patient's management. Laurel Mcdermott NP Apr 13, 2019 12:19
--- NOTE | 2019-04-16 19:58 | Cardiology Report ---
APPROVED REPORT EKG Measurement Heart [id number] Sinus bradycardia Otherwise normal ECG
--- NOTE | 2019-04-24 19:09 | CDS Physician Query ---
Clarification is required for compliance, coding accuracy, and to reflect severity of illness for this patient Dear Dr. Pagan Date: 04/24/19 __ CDS Name: Carlos Please respond to the following question: Is there a causal relationship between the _Hemoptysis____ and _Throat cancer___ _ ? PHYSICIAN RESPONSE: [X] YES [] NO Present on Admission: [X] Yes [] No [] Clinically Undetermined Physician signature Date Please also document in your Progress Notes and/or Discharge Summary and indicate if the condition was present on admission. KHADRAD
== END 2019-04-12 09:35 | disposition left against medical advice (07) | DRG 110 ==
LOC: EDBEDREQSVC 17:09 → EMR 17:21 → EDBEDREQ 17:37 → EDBEDREQSVC 17:37 → 2E 17:40 → EDBEDREQ 19:27
DX: C14.0 Malignant neoplasm of pharynx, unspecified (principal); R04.2 Hemoptysis; J44.9 Chronic obstructive pulmonary disease, unspecified; D69.6 Thrombocytopenia, unspecified; R13.10 Dysphagia, unspecified; R00.1 Bradycardia, unspecified; I10 Essential (primary) hypertension; F17.200 Nicotine dependence, unspecified, uncomplicated; Z88.1 Allergy status to other antibiotic agents; Z88.0 Allergy status to penicillin; F32.9 Major depressive disorder, single episode, unspecified
CPT/HCPCS: 31645; 36415; 71045; 71275; 80053; 81003; 85007; 85025; 85610; 85730; 86850; 86900; 86901; 87040; 87081; 93005; 96361; 96374; 99285